=== PATIENT | female | born 1970 | race Caucasian/White ===

== ENCOUNTER 2019-12-13 16:55 | Emergency (ER) | payer BC, OTHER ==
[2019-12-13 17:56] VITALS: BP 134/90; PULSE 110
[2019-12-13] MEDS ORDERED: Lactated Ringers 1,000 ML IV ONE ×2 (18:17→20:52)
[2019-12-13] MEDS ORDERED: LORazepam 2 MG/ML SDV IVPUSH STA (18:18)
[2019-12-13] MEDS ORDERED: Ondansetron 4 MG/2 ML SDV IVPUSH ONE (18:18)
--- NOTE | 2019-12-13 18:23 | EDM.PDOC ---
ED HPI GENERAL MEDICAL PROBLEM - General Chief Complaint: Gastrointestinal Problem Stated Complaint: VOMITING Time Seen by Provider: 12/13/19 17:51 Source of Information: Reports: Patient, Other (2 friends from [facility]) History Limitations: Reports: Altered Mental Status (suspicious, somewhat forgetful) - History of Present Illness INITIAL COMMENTS - FREE TEXT/NARRATIVE: Ms. Jaime is a pleasant 48-year-old woman with a past medical history significant for untreated PTSD, depression, and panic attacks, paroxysmal atrial fibrillation on Coumadin, and binge alcoholism, who is brought to the ED by 2 of her friends from [facility], who state that the patient moved from [place] into [facility] here in [place] in June 2019. She then moved into her own apartment about one week ago. She states that she remained sober the entire time that she was at [facility], up until this past 12/11/2019, when she started drinking a "large" amount of alcohol that her 2 friends estimate to be 1.5 gallons over the past 3 days. Her friends now bring her to the ED because of audible hallucinations, such as hearing a dog bark that was not there, and people walking on the ceiling, since 10:00 this morning, which was about the time of her last drink. She also developed nausea and vomiting today. The patient states that she will typically binge for days to weeks, then remain sober for weeks to months. She has been to inpatient treatment only once, in 2016, for 42 days. She states that she stayed sober for about 6 months after she was released. She attends AA, but not for the past 2 weeks. The patient states that she is ordinarily compliant with her Coumadin, but has not taken it since 12/09/2019. She last had her INR checked sometime last year. The patient denies recent illness, such as recent fever, chills, cough, dyspnea , chest pain, palpitations, constipation, diarrhea, urinary symptoms, abdominal pain, recent weight gain or weight loss, recent bloody or black bowel movements , recent joint aches, headaches, or rashes. The patient's PCP is Dr. Dimas De Leon, in [place]. She did not receive an influenza vaccine this season, but is willing to receive one here today. - Related Data Allergies Allergy/AdvReac Type Severity Reaction Status Date / Time acetaminophen Allergy Hives Verified 12/13/19 17:53 [From Lorcet (hydrocodone)] hydrocodone Allergy Hives Verified 12/13/19 17:53 [From Lorcet (hydrocodone)] Home Meds: Home Meds Diclofenac Sodium [Diclofenac Sodium ER] 100 mg PO DAILY PRN 30 Days #30 tab.sr.24h 05/06/19 [Rx] Past Medical History Cardiovascular History: Reports: Afib (paroxysmal), High Cholesterol, Hypertension Gastrointestinal History: Reports: Diverticulosis Genitourinary History: Reports: Renal Calculus [employer] History: Reports: Musculoskeletal History: Reports: Fracture (left foot) Psychiatric History: Reports: Addiction (alcohol), Depression, Panic Attack, PTSD, Suicide Attempt - Infectious Disease History Infectious Disease History: Reports: Chicken Pox - Past Surgical History HEENT Surgical History: Reports: Oral Surgery (wisdom teeth extraction) GI Surgical History: Reports: Appendectomy, Cholecystectomy (2005), Colonoscopy (x 4) Female Surgical History: Reports: Breast Reduction, Section (x 3), Hysterectomy ( complete), Kidney stone extraction (x 4), Nephrectomy (right, partial, x 2) Social & Family History - Family History Family Medical History: Noncontributory - Tobacco Use Smoking Status *Q: Current Every Day Smoker Years of Tobacco use: 15 Packs/Tins Daily: 0.5 - Caffeine Use Caffeine Use: Reports: Coffee, Soda, Tea - Alcohol Use Alcohol Use History: Yes Alcohol Use Frequency: Binges - Recreational Drug Use Recreational Drug Use: No - Living Situation & Occupation Living situation: Reports: , Alone Occupation: Employed ([employer]) ED ROS GENERAL - Review of Systems Review Of Systems: Comprehensive ROS is negative, except as noted in HPI. GI/Abdominal: Reports: Diarrhea (chronic) ED EXAM, GENERAL - Physical Exam Exam: See Below Exam Limited By: Altered Mental Status (suspicious, draws away) General Appearance: Alert, WD/WN, Anxious, Other (smells strongly of alcohol) Eye Exam: Bilateral Eye: EOMI, Normal Inspection Ears: Normal External Exam, Hearing Grossly Normal Nose: Normal Inspection Throat/Mouth: Normal Inspection, Normal Lips, Normal Voice, No Airway Compromise Head: Atraumatic, Normocephalic Neck: Normal Inspection, Full Range of Motion Respiratory/Chest: No Respiratory Distress, Lungs Clear, Normal Breath Sounds, No Accessory Muscle Use Cardiovascular: Normal Peripheral Pulses, No Edema, No Gallop, No JVD, No Murmur , No Rub, Tachycardia (regular) Peripheral Pulses: 4+: Radial (L), Radial (R) GI/Abdominal: Normal Bowel Sounds, Soft, No Organomegaly, No Distention, No Abnormal Bruit, No Mass, Tender (Mild, suprapubic only. Nontender elsewhere.) (Female) Exam: Deferred Rectal (Female) Exam: Deferred Back Exam: Normal Inspection, Full Range of Motion, NT Extremities: Normal Inspection, Normal Range of Motion, No Pedal Edema, Normal Capillary Refill Neurological: Alert, Oriented, No Motor/Sensory Deficits, Other (Somewhat forgetful) Psychiatric: Anxious Skin Exam: Warm, Dry, Intact, Normal Color, No Rash EKG INTERPRETATION EKG Date: 12/13/19 Time: 18:30 Rhythm: Other (Sinus tachycardia) Rate (Beats/Min): 107 Glendo: Normal P-Wave: Present QRS: Normal ST-T: Normal QT: Prolonged (QTc 498 ms) Comparison: No Change (05/04/2019) Course - Vital Signs Last Recorded V/S: Last Vital Signs Temp 36.4 C 12/13/19 17:54 Pulse 110 H 12/13/19 17:54 Resp 16 12/13/19 17:54 BP 134/90 12/13/19 17:54 Pulse Ox 100 12/13/19 17:54 - Orders/Labs/Meds Orders: Active Orders 24 hr Category Date Time Status EKG Documentation Completion [RC] STAT Care 12/13/19 18:16 Active Influenza Vaccine Charge [RC] .DISCHARGE Care 12/13/19 22:16 Active Labs: Laboratory Tests 12/13/19 12/13/19 12/13/19 Range/Units 18:23 18:50 18:50 WBC 15.39 H (3.98-10.04) K/mm3 RBC 4.67 (3.98-5.22) M/mm3 Hgb 14.6 (11.2-15.7) gm/dl Hct 41.3 (34.1-44.9) % MCV 88.4 (79.4-94.8) fl MCH 31.3 (25.6-32.2) pg MCHC 35.4 (32.2-35.5) g/dl RDW Std Deviation 43.3 (36.4-46.3) fL Plt Count 318 (182-369) K/mm3 MPV 9.1 L (9.4-12.3) fl Neut % (Auto) 75.0 H (34.0-71.1) % Lymph % (Auto) 19.6 (19.3-51.7) % Drew % (Auto) 4.4 L (4.7-12.5) % Eos % (Auto) 0.5 L (0.7-5.8) Baso % (Auto) 0.3 (0.1-1.2) % Neut # (Auto) 11.55 H (1.56-6.13) K/mm3 Lymph # (Auto) 3.01 (1.18-3.74) K/mm3 Drew # (Auto) 0.68 H (0.24-0.36) K/mm3 Eos # (Auto) 0.08 (0.04-0.36) K/mm3 Baso # (Auto) 0.04 (0.01-0.08) K/mm3 Manual Slide Review Normal smear PT (9.7-12.0) SECONDS INR APTT (22-31) SECONDS Sodium 134 L (136-145) mEq/L Potassium 4.2 (3.5-5.1) mEq/L Chloride 94 L (98-107) mEq/L Carbon Dioxide 18 L (21-32) mEq/L Anion Gap 26.2 H (5-15) BUN 18 (7-18) mg/dL Creatinine 1.0 (0.55-1.02) mg/dL Est Cr Clr Drug Dosing 60.06 mL/min Estimated GFR (MDRD) 59 (>60) mL/min BUN/Creatinine Ratio 18.0 (14-18) Glucose 79 (74-106) mg/dL Calcium 9.1 (8.5-10.1) mg/dL Magnesium 1.6 L (1.8-2.4) mg/dl Total Bilirubin 0.5 (0.2-1.0) mg/dL AST 53 H (15-37) U/L ALT 61 H (14-59) U/L Alkaline Phosphatase 88 (46-116) U/L Total Protein 8.4 H (6.4-8.2) g/dl Albumin 4.3 (3.4-5.0) g/dl Globulin 4.1 gm/dL Albumin/Globulin Ratio 1.1 (1-2) TSH 3rd Generation 1.850 (0.358-3.74) uIU/mL Urine Opiates Screen Negative (QQAMHE=686) Ur Buprenorphine Scrn Negative (CUTOFF=10) Ur Oxycodone Screen Negative (HDR6ZC=057) Urine Methadone Screen Negative (TMDWMK=868) Ur Propoxyphene Screen Negative (WCHEME=453) Ur Barbiturates Screen Negative (CRROJC=398) Ur Tricyclics Screen Negative (WCYJEF=645) Ur Phencyclidine Scrn Negative (CUTOFF=25) Ur Amphetamine Screen Negative (TUCXYK=221) U Methamphetamines Scrn Negative (AVUKCT=721) U Benzodiazepines Scrn Negative (ETGGDX=580) U Cocaine Metab Screen Negative (KQJXKQ=391) U Marijuana (THC) Screen Negative (CUTOFF=50) Ethyl Alcohol 0.16 (0.00) gm% 12/13/19 Range/Units 18:50 WBC (3.98-10.04) K/mm3 RBC (3.98-5.22) M/mm3 Hgb (11.2-15.7) gm/dl Hct (34.1-44.9) % MCV (79.4-94.8) fl MCH (25.6-32.2) pg MCHC (32.2-35.5) g/dl RDW Std Deviation (36.4-46.3) fL Plt Count (182-369) K/mm3 MPV (9.4-12.3) fl Neut % (Auto) (34.0-71.1) % Lymph % (Auto) (19.3-51.7) % Drew % (Auto) (4.7-12.5) % Eos % (Auto) (0.7-5.8) Baso % (Auto) (0.1-1.2) % Neut # (Auto) (1.56-6.13) K/mm3 Lymph # (Auto) (1.18-3.74) K/mm3 Drew # (Auto) (0.24-0.36) K/mm3 Eos # (Auto) (0.04-0.36) K/mm3 Baso # (Auto) (0.01-0.08) K/mm3 Manual Slide Review PT 9.9 (9.7-12.0) SECONDS INR < 0.93 APTT 25 (22-31) SECONDS Sodium (136-145) mEq/L Potassium (3.5-5.1) mEq/L Chloride (98-107) mEq/L Carbon Dioxide (21-32) mEq/L Anion Gap (5-15) BUN (7-18) mg/dL Creatinine (0.55-1.02) mg/dL Est Cr Clr Drug Dosing mL/min Estimated GFR (MDRD) (>60) mL/min BUN/Creatinine Ratio (14-18) Glucose (74-106) mg/dL Calcium (8.5-10.1) mg/dL Magnesium (1.8-2.4) mg/dl Total Bilirubin (0.2-1.0) mg/dL AST (15-37) U/L ALT (14-59) U/L Alkaline Phosphatase (46-116) U/L Total Protein (6.4-8.2) g/dl Albumin (3.4-5.0) g/dl Globulin gm/dL Albumin/Globulin Ratio (1-2) TSH 3rd Generation (0.358-3.74) uIU/mL Urine Opiates Screen (ZLNMJR=098) Ur Buprenorphine Scrn (CUTOFF=10) Ur Oxycodone Screen (PWX8GD=194) Urine Methadone Screen (YWKHPP=698) Ur Propoxyphene Screen (UXEDHD=480) Ur Barbiturates Screen (HYIMVN=204) Ur Tricyclics Screen (GQJHRJ=564) Ur Phencyclidine Scrn (CUTOFF=25) Ur Amphetamine Screen (YDMNKN=531) U Methamphetamines Scrn (IZMQFD=524) U Benzodiazepines Scrn (RQVKDG=970) U Cocaine Metab Screen (VGKZDF=785) U Marijuana (THC) Screen (CUTOFF=50) Ethyl Alcohol (0.00) gm% Meds: Medications Discontinued Medications Generic Name Dose Route Start Last Admin Trade Name Freq PRN Reason Stop Dose Admin Lactated Ringer's 1,000 mls @ 999 mls/hr 12/13/19 18:17 12/13/19 19:03 Ringers, Lactated IV 12/13/19 19:17 999 mls/hr .BOLUS ONE Administration Magnesium Sulfate 2 gm/ Premix 50 mls @ 50 mls/hr 12/13/19 20:05 12/13/19 20: 15 IV 12/13/19 21:04 50 mls/hr ONETIME ONE Administration Lactated Ringer's 1,000 mls @ 999 mls/hr 12/13/19 20:52 12/13/19 21:05 Ringers, Lactated IV 12/13/19 21:52 999 mls/hr .BOLUS ONE Administration Influenza Virus Vaccine 1 each 12/13/19 22:15 Pharmacy To Dose - Influenza Vaccine IM 12/13/19 22:16 ONETIME ONE Influenza Virus Vaccine 60 mcg 12/13/19 22:30 12/13/19 22:31 Fluzone Quad [id number] Syringe IM 12/13/19 22:31 Not Given .ONCE ONE Lorazepam 1 mg 12/13/19 18:18 12/13/19 19:04 Ativan IVPUSH 12/13/19 18:19 1 mg ONETIME STA Administration Ondansetron HCl 4 mg 12/13/19 18:18 12/13/19 19:04 Zofran IVPUSH 12/13/19 18:19 4 mg ONETIME ONE Administration - Re-Assessments/Exams Free Text/Narrative Re-Assessment/Exam: 12/13/19 18:20 The patient appears to be intoxicated, and I suspect that she has some underlying anxiety issues that may cause her to be suspicious, which limits the accuracy of her history. Her 2 friends corroborate her story, that she has been drinking since Saturday, and was likely sober prior to that since June or even earlier. This means that the patient is not at increased risk for the development of significant alcohol withdrawal symptoms. I have ordered blood work, including a CMP and magnesium level, to evaluate for significant fluid or electrolyte shifts, and a urine drug screen to confirm that there are no other agents on board, however, the patient is telling me that she does not need to urinate at this time, and adamantly refused to have a nurse catheterize her. Additional work-up includes an ECG to evaluate for dysrhythmias or prolonged QT interval, an alcohol level, coags, and a TSH. In the meantime, the patient will be given IV fluid, IV Zofran, and I added 1 mg of Ativan to help calm her nerves, however, it is not my intention to continue to push benzodiazepines, because, as above, the patient is not at increased risk for the development of significant alcohol withdrawal symptoms. 12/13/19 20:05 The patient CBC is remarkable for a WBC count modestly elevated at 15.39 with 75 % neutrophilia, but a normal smear. The remainder of her CBC is unremarkable. Her CMP is remarkable for a sodium slightly depressed at 134, a chloride slightly depressed at 94, a bicarbonate depressed at 18 with an anion gap elevated at 26.2, with the remainder of her CMP, including renal function and blood glucose, normal. Her magnesium level is depressed at 1.6. Her TSH is within normal limits at 1.850. Her coags are within normal limits. Her EtOH level is elevated at 0.16. Her urine drug screen is unremarkable. I have ordered a 2 g Mg-rider. 12/13/19 20:53 Test results discussed with the patient and her 2 friends. The patient appears to be doing well. Since we are waiting for the Mg-rider to infuse, I have ordered a second liter of LR. 12/13/19 22:12 The patient's second liter of LR has finished. The patient looks much better now, less anxious. She feels well enough to go home. She had no requests. I strongly recommended that she not resume drinking. The patient will be given an influenza vaccine prior to discharge. Departure - Departure Time of Disposition: 22:13 Disposition: Home, Self-Care 01 Condition: Good Clinical Impression: Episode of binge consumption of alcohol, High anion gap metabolic acidosis, Hypomagnesemia Alcohol intoxication Qualifiers: Complication of substance-induced condition: uncomplicated Qualified Code(s): F10.920 - Alcohol use, unspecified with intoxication, uncomplicated - Discharge Information *PRESCRIPTION DRUG MONITORING PROGRAM REVIEWED*: Not Applicable *COPY OF PRESCRIPTION DRUG MONITORING REPORT IN PATIENT RANDY: Not Applicable Instructions: Hypomagnesemia, Binge-Drinking Information, Adult Referrals: Dimas De Leon PA [Ordering Only Provider] - Forms: ED Department Discharge Additional Instructions: You were seen in the emergency room for verbal hallucinations, nausea, and vomiting after 3 days of heavy drinking. Work-up in the ER included blood work, a urine drug screen, and an ECG. Your work-up found that you had an anion gap metabolic acidosis, which was treated with IV fluid. You were also found to have a low magnesium level, which was replaced via an IV. Your alcohol level was found to be elevated at 0.16, twice the upper legal limit for driving. The remainder of your work-up was unremarkable. As discussed, we strongly recommend that you do not resume drinking alcohol. If any other problems, please do not hesitate to return to the ER. *You received an influenza vaccine during your ER visit.* Sepsis Event Note - Evaluation Sepsis Screening Result: No Definite Risk - Focused Exam Vital Signs: Vital Signs Temp Pulse Resp BP Pulse Ox 12/13/19 17:54 36.4 C 110 H 16 134/90 100 Date Exam was Performed: 12/14/19 Time Exam was Performed: 02:09 - My Orders Last 24 Hours: My Active Orders 12/13/19 18:16 EKG Documentation Completion [RC] STAT 12/13/19 22:16 Influenza Vaccine Charge [RC] .DISCHARGE - Assessment/Plan Last 24 Hours: My Active Orders 12/13/19 18:16 EKG Documentation Completion [RC] STAT 12/13/19 22:16 Influenza Vaccine Charge [RC] .DISCHARGE
[2019-12-13] MEDS ORDERED: Magnesium Sulfate/Water 2 GM in Premix Bag 1 BAG IV ONE (20:05)
[2019-12-13] MEDS ORDERED: FLU Vacc QS2019-20(6MOS+)/PF 60 MCG/0.5 ML SYRINGE IM ONE (22:30)
== END 2019-12-13 22:32 | disposition home or self-care (01) ==
LOC: JD.ED 16:55
DX: E83.42 Hypomagnesemia (principal); F10.220 Alcohol dependence with intoxication, uncomplicated; E87.2 Acidosis; I10 Essential (primary) hypertension; I48.91 Unspecified atrial fibrillation; F17.210 Nicotine dependence, cigarettes, uncomplicated; Z79.01 Long term (current) use of anticoagulants; Z88.8 Allergy status to other drugs, medicaments and biological substances; Z98.890 Other specified postprocedural states; Z90.49 Acquired absence of other specified parts of digestive tract; Z90.710 Acquired absence of both cervix and uterus; Y90.6 Blood alcohol level of 120-199 mg/100 ml
CPT/HCPCS: 36415; 80053; 80306; 80320; 83735; 84443; 85025; 85610; 85730; 93005; 96361; 96365; 96375; 99285; J2060; J2405; J3475; J7120; 93010; 99284; G0480

== ENCOUNTER 2020-02-06 16:44 | Emergency (ER) | payer BC ==
[2020-02-06 16:57] VITALS: BP 164/106
[2020-02-06] MEDS ORDERED: Sodium Chloride 0.9% 10 ML Syringe FLUSH PRN (17:12)
[2020-02-06] MEDS ORDERED: Thiamine 200 MG/2 ML MDV IVPUSH ONE (17:13)
[2020-02-06] MEDS ORDERED: Biotin/Folic Acid/Vitamin C/Vitamin B Complex Tab PO ONE (17:14)
[2020-02-06] MEDS ORDERED: Folic Acid 50 MG/10 ML MDV IV ONE (17:14)
[2020-02-06] MEDS ORDERED: Sodium Chloride 0.9% 1,000 ML IV SCH ×2 (17:15→19:00)
[2020-02-06] MEDS ORDERED: Ondansetron 4 MG/2 ML SDV IVPUSH ONE (17:15)
[2020-02-06] MEDS ORDERED: LORazepam 2 MG/ML SDV IVPUSH ONE (17:16)
--- NOTE | 2020-02-06 18:31 | EDM.PDOCBH ---
ED HPI GENERAL MEDICAL PROBLEM - General Chief Complaint: Behavioral/Psych Stated Complaint: DRINKING ALCOHOL FOR 1 WEEK NEEDS DETOX Time Seen by Provider: 02/06/20 17:04 Source of Information: Reports: Patient, Other (Friends and a drug and alcohol counseler) History Limitations: Reports: Other (Possibly intoxicated and hallucinating) - History of Present Illness INITIAL COMMENTS - FREE TEXT/NARRATIVE: The patient present with friends and her drug an alcohol counselor for withdrawals. She admits to drinking daily for 10 days heavily. She admits to drinking vodka. Her friends thinks she last drank today but she says 4 days ago. She is seeing things and is paranoid. She will get like this when coming off of alcohol. She has not been vomiting. She is not shaking. She is scared when I walk into the room. She did let me examine her. She has no chest pain, shortness of breath or abdominal pain. Onset: Gradual Duration: Hour(s): Severity: Severe Improves with: Reports: None Worsens with: Reports: None Associated Symptoms: Denies: Chest Pain, Cough, Fever/Chills, Headaches, Nausea/ Vomiting, Shortness of Breath Bilateral Leg Pain Score (Numeric/FACES): 5 Bilateral Shoulder Pain Score (Numeric/FACES): 6 - Related Data Allergies Allergy/AdvReac Type Severity Reaction Status Date / Time acetaminophen Allergy Hives Verified 02/06/20 16:52 [From Lorcet (hydrocodone)] hydrocodone Allergy Hives Verified 02/06/20 16:52 [From Lorcet (hydrocodone)] Home Meds: Home Meds Diclofenac Sodium [Diclofenac Sodium ER] 100 mg PO DAILY PRN 30 Days #30 tab.sr.24h 05/06/19 [Rx] Past Medical History HEENT History: Reports: None Cardiovascular History: Reports: Afib, High Cholesterol, Hypertension Other Cardiovascular History: "i'm on a heart pill because I smoke too much" Respiratory History: Reports: None Gastrointestinal History: Reports: Diverticulosis Genitourinary History: Reports: Renal Calculus [employer] History: Reports: Musculoskeletal History: Reports: Fracture Other Musculoskeletal History: hx of fx left foot Neurological History: Reports: None Psychiatric History: Reports: Addiction, Depression, Panic Attack, PTSD, Suicide Attempt Endocrine/Metabolic History: Reports: None Hematologic History: Reports: None Immunologic History: Reports: None Oncologic (Cancer) History: Reports: None Dermatologic History: Reports: None - Infectious Disease History Infectious Disease History: Reports: Chicken Pox - Past Surgical History Head Surgeries/Procedures: Reports: None HEENT Surgical History: Reports: Oral Surgery Respiratory Surgical History: Reports: Other (See Below) Other Respiratory Surgeries/Procedures: left lobectomy GI Surgical History: Reports: Appendectomy, Cholecystectomy, Colonoscopy Female Surgical History: Reports: Breast Reduction, Section, Hysterectomy, Kidney stone extraction, Nephrectomy Social & Family History - Family History Family Medical History: Noncontributory - Tobacco Use Smoking Status *Q: Current Every Day Smoker Years of Tobacco use: 35 Packs/Tins Daily: 0.5 - Caffeine Use Caffeine Use: Reports: Coffee, Soda, Tea - Recreational Drug Use Recreational Drug Use: No - Living Situation & Occupation Living situation: Reports: , Alone Occupation: Employed ([employer]) ED ROS GENERAL - Review of Systems Review Of Systems: See Below Constitutional: Reports: No Symptoms HEENT: Reports: No Symptoms Respiratory: Reports: No Symptoms Cardiovascular: Reports: No Symptoms Endocrine: Reports: No Symptoms GI/Abdominal: Reports: No Symptoms : Reports: No Symptoms Musculoskeletal: Reports: No Symptoms Skin: Reports: No Symptoms Neurological: Reports: Confusion Psychiatric: Reports: Anxiety, Hallucinations ED EXAM, BEHAVIORAL HEALTH - Physical Exam Exam: See Below Exam Limited By: No Limitations General Appearance: Alert, Mild Distress Ears: Normal External Exam Nose: Normal Inspection Head: Atraumatic, Normocephalic Neck: Normal Inspection Respiratory/Chest: No Respiratory Distress, Lungs Clear, Normal Breath Sounds Cardiovascular: Regular Rate, Rhythm, No Edema, No Murmur GI/Abdominal: Soft, Non-Tender, No Organomegaly, No Mass Back Exam: Normal Inspection Extremities: Normal Inspection Neurological: Alert, No Motor/Sensory Deficits, Oriented x 3 COURSE, BEHAVIORAL HEALTH COMP - Course Vital Signs: Last Vital Signs Temp 99.1 F 02/06/20 16:52 Pulse 110 H 02/06/20 18:40 Resp 14 02/06/20 18:40 BP 164/106 H 02/06/20 16:52 Pulse Ox 95 02/06/20 18:50 Orders, Labs, Meds: Active Orders 24 hr Category Date Time Status Cardiac Monitoring [RC] . DIRECTED Care 02/06/20 17:12 Active Peripheral IV Care [RC] . DIRECTED Care 02/06/20 17:13 Active DRUG SCREEN, URINE [URCHEM] Stat Lab 02/06/20 17:12 Ordered LIPASE [CHEM] Stat Lab 02/06/20 17:16 Received Sodium Chloride 0.9% [Normal Saline] 1,000 ml Med 02/06/20 17:15 Active IV .BOLUS Sodium Chloride 0.9% [Normal Saline] 1,000 ml Med 02/06/20 19:00 Active IV ASDIRECTED Sodium Chloride 0.9% [Saline Flush] Med 02/06/20 17:12 Active 10 ml FLUSH ASDIRECTED PRN Peripheral IV Insertion Adult [OM.PC] Stat Oth 02/06/20 17:12 Ordered Medication Orders Sodium Chloride (Normal Saline) 1,000 mls @ 1,000 mls/hr IV .BOLUS ANA Last Admin: 02/06/20 17:26 Dose: 1,000 mls/hr Sodium Chloride (Normal Saline) 1,000 mls @ 150 mls/hr IV ASDIRECTED ANA Sodium Chloride (Saline Flush) 10 ml FLUSH ASDIRECTED PRN PRN Reason: Keep Vein Open Last Admin: 02/06/20 17:26 Dose: 10 ml Laboratory Tests 02/06/20 02/06/20 Range/Units 17:16 17:16 WBC 9.59 (3.98-10.04) K/mm3 RBC 4.49 (3.98-5.22) M/mm3 Hgb 14.6 (11.2-15.7) gm/dl Hct 41.8 (34.1-44.9) % MCV 93.1 D (79.4-94.8) fl MCH 32.5 H (25.6-32.2) pg MCHC 34.9 (32.2-35.5) g/dl RDW Std Deviation 49.2 H (36.4-46.3) fL Plt Count 233 D (182-369) K/mm3 MPV 9.4 (9.4-12.3) fl Neut % (Auto) 64.6 (34.0-71.1) % Lymph % (Auto) 31.0 (19.3-51.7) % [place] % (Auto) 3.4 L (4.7-12.5) % Eos % (Auto) 0.5 L (0.7-5.8) Baso % (Auto) 0.3 (0.1-1.2) % Neut # (Auto) 6.19 H (1.56-6.13) K/mm3 Lymph # (Auto) 2.97 (1.18-3.74) K/mm3 [place] # (Auto) 0.33 (0.24-0.36) K/mm3 Eos # (Auto) 0.05 (0.04-0.36) K/mm3 Baso # (Auto) 0.03 (0.01-0.08) K/mm3 Sodium 135 L (136-145) mEq/L Potassium 4.0 (3.5-5.1) mEq/L Chloride 95 L (98-107) mEq/L Carbon Dioxide 15 L (21-32) mEq/L Anion Gap 29.0 H (5-15) BUN 14 (7-18) mg/dL Creatinine 0.9 (0.55-1.02) mg/dL Est Cr Clr Drug Dosing 54.91 mL/min Estimated GFR (MDRD) > 60 (>60) mL/min BUN/Creatinine Ratio 15.6 (14-18) Glucose 83 (74-106) mg/dL Calcium 8.5 (8.5-10.1) mg/dL Magnesium 1.8 (1.8-2.4) mg/dl Total Bilirubin 0.5 (0.2-1.0) mg/dL AST 76 H (15-37) U/L ALT 61 H (14-59) U/L Alkaline Phosphatase 99 (46-116) U/L Total Protein 8.4 H (6.4-8.2) g/dl Albumin 4.3 (3.4-5.0) g/dl Globulin 4.1 gm/dL Albumin/Globulin Ratio 1.1 (1-2) Ethyl Alcohol 0.36 (0.00) gm% Medications Generic Name Dose Route Start Last Admin Trade Name Freq PRN Reason Stop Dose Admin Sodium Chloride 1,000 mls @ 1,000 mls/hr 02/06/20 17:15 02/06/20 17:26 Normal Saline IV 1,000 mls/hr .BOLUS ANA Administration Sodium Chloride 1,000 mls @ 150 mls/hr 02/06/20 19:00 Normal Saline IV ASDIRECTED ANA Sodium Chloride 10 ml 02/06/20 17:12 02/06/20 17:26 Saline Flush FLUSH 10 ml ASDIRECTED PRN Administration Keep Vein Open Discontinued Medications Generic Name Dose Route Start Last Admin Trade Name Fadumo PRN Reason Stop Dose Admin Folic Acid 1 mg 02/06/20 17:14 02/06/20 17:29 Folic Acid IV 02/06/20 17:15 1 mg ONETIME ONE Administration Lorazepam 1 mg 02/06/20 17:16 02/06/20 17:26 Ativan IVPUSH 02/06/20 17:17 1 mg ONETIME ONE Administration Ondansetron HCl 4 mg 02/06/20 17:15 02/06/20 17:27 Zofran IVPUSH 02/06/20 17:16 4 mg ONETIME ONE Administration Thiamine HCl 100 mg 02/06/20 17:13 02/06/20 17:28 Vitamin B-1 IVPUSH 02/06/20 17:14 100 mg ONETIME ONE Administration Vitamin B Complex/Vit C/Folic Acid 1 tab 02/06/20 17:14 02/06/20 17:37 Nephrocaps PO 02/06/20 17:15 1 tab ONETIME ONE Administration Re-Assessment/Re-Exam: I ordered an IV NS 1L bolus, thiamine 100mg IV, folic acid 1mg IV, multivitamin PO, ativan 1mg IV, zofran 4mg IV, labs and urine drug screen. Her CBC looks good. Her Na is low at 135. Her anion gap is 29. Her AST is elevated at 76. Her ALT is elevated at 61. Her ETOH is elevated 0.36. She is looking to stop drinking. I do not have any beds in the ICU. I will call [facility] to see if they can take her. I talked with Dr Quarles the hospitalist pilot control operator helper and he agreed to the transfer. Departure - Departure Time of Disposition: 19:10 Disposition: DC/Tfer to Acute Hospital 02 Condition: Fair Clinical Impression: Alcohol abuse, Dehydration Alcohol intoxication Qualifiers: Complication of substance-induced condition: uncomplicated Qualified Code(s): F10.920 - Alcohol use, unspecified with intoxication, uncomplicated - Discharge Information Referrals: PCP,None [Primary Care Provider] - Forms: ED Department Discharge Sepsis Event Note - Evaluation Sepsis Screening Result: No Definite Risk - Focused Exam Vital Signs: Vital Signs Temp Pulse Resp BP Pulse Ox 02/06/20 18:50 95 02/06/20 18:49 84 L 02/06/20 18:40 110 H 14 90 L 02/06/20 16:52 99.1 F 146 H 20 164/106 H 96 Date Exam was Performed: 02/06/20 Time Exam was Performed: 19:05 - My Orders Last 24 Hours: My Active Orders 02/06/20 17:12 Cardiac Monitoring [RC] . DIRECTED DRUG SCREEN, URINE [URCHEM] Stat Sodium Chloride 0.9% [Saline Flush] 10 ml FLUSH ASDIRECTED PRN Peripheral IV Insertion Adult [OM.PC] Stat 02/06/20 17:13 Peripheral IV Care [RC] . DIRECTED 02/06/20 17:15 Sodium Chloride 0.9% [Normal Saline] 1,000 ml IV .BOLUS 02/06/20 17:16 LIPASE [CHEM] Stat 02/06/20 19:00 Sodium Chloride 0.9% [Normal Saline] 1,000 ml IV ASDIRECTED - Assessment/Plan Last 24 Hours: My Active Orders 02/06/20 17:12 Cardiac Monitoring [RC] . DIRECTED DRUG SCREEN, URINE [URCHEM] Stat Sodium Chloride 0.9% [Saline Flush] 10 ml FLUSH ASDIRECTED PRN Peripheral IV Insertion Adult [OM.PC] Stat 02/06/20 17:13 Peripheral IV Care [RC] . DIRECTED 02/06/20 17:15 Sodium Chloride 0.9% [Normal Saline] 1,000 ml IV .BOLUS 02/06/20 17:16 LIPASE [CHEM] Stat 02/06/20 19:00 Sodium Chloride 0.9% [Normal Saline] 1,000 ml IV ASDIRECTED
[2020-02-06 18:40] VITALS: PULSE 110
== END 2020-02-06 20:00 ==
LOC: JD.ED 16:44
DX: F10.120 Alcohol abuse with intoxication, uncomplicated (principal); Y90.0 Blood alcohol level of less than 20 mg/100 ml; E86.0 Dehydration; I10 Essential (primary) hypertension; I48.91 Unspecified atrial fibrillation; F17.210 Nicotine dependence, cigarettes, uncomplicated; Z88.8 Allergy status to other drugs, medicaments and biological substances
CPT/HCPCS: 36415; 80053; 80306; 80307; 83690; 83735; 85025; 96361; 96374; 96375; 99285; A9270; J2060; J2405; J3411; J7030